=== PATIENT | female | born 1965 | race Caucasian/White ===

== ENCOUNTER → 2020-12-06 | Outpatient (CLI) | payer BC ==
[~2020-12-06] MED LIST: ATOR10TA60 PO; CETI10TA74 PO; FAMO20TA5 PO; FLUT9.9S NS; LEVO88TA4 PO; METO50TA6 PO; ONDA4TAB7 PO; TOPI50TA8 PO
== END ==
LOC: LAB 09:26
PROVIDERS: ATTEND Orthopaedic Surgery
DX: Z01.812 Encounter for preprocedural laboratory examination (principal); Z20.822 Contact with and (suspected) exposure to COVID-19
CPT/HCPCS: U0003; U0005

== ENCOUNTER 2020-12-08 06:47 | Day surgery (SDC) | payer BC ==
[~2020-12-08] VITALS: Ht 170.2 cm; Wt 97.8 kg
[~2020-12-08 06:47] MED LIST changes: +IV RINGERS,LACTATED 1000ML 1,000 ML IV SCH; -ONDA4TAB7 PO; +PROCHLORPERAZINE 10 MG/2 ML VIAL. IVP PRN
[2020-12-08] MEDS ORDERED: PROPOFOL 10 MG/ML (20ML) VIAL. IV ONE ×2 (07:36→07:38)
[2020-12-08] MEDS ORDERED: ROCURONIUM 50 MG/5 ML VIAL. ONE (07:36)
[2020-12-08] MEDS ORDERED: LIDOCAINE 2% PF 5 ML VIAL. ONE ×2 (07:37→07:38)
[2020-12-08] MEDS ORDERED: KETOROLAC 30 MG/ML VIAL. ONE (07:38)
[2020-12-08] MEDS ORDERED: SEVOFLURANE > 120 MINUTES. IH ONE (07:38)
[2020-12-08] MEDS ORDERED: DEXAMETHASONE SOD PHOS 4 MG/ML VIAL ONE (07:38)
[2020-12-08] MEDS ORDERED: ONDANSETRON PF 4 MG/2 ML VIAL. ONE ×2 (07:38→11:54)
[2020-12-08] MEDS ORDERED: SCOPOLAMINE 1.5MG PATCH. TD ONE (07:45)
[2020-12-08] MEDS ORDERED: MIDAZOLAM HCL/PF 2 MG/2 ML VIAL. ONE (07:52)
[2020-12-08] MEDS ORDERED: ROPIVacaine 0.5% PF 20 ML VIAL. ONE (07:53)
[2020-12-08] MEDS ORDERED: ACETAMINOPHEN 500 MG TABLET PO ONE ×2 (08:09→08:15)
[2020-12-08] MEDS ORDERED: EPINEPHrine VIAL 30 MG/30 ML VIAL ONE (08:13)
[2020-12-08] MEDS ORDERED: KETAMINE HCL IN NACL, ISO-OSM 50 MG/5 ML SYRINGE ONE (08:58)
[2020-12-08] MEDS ORDERED: BUPIVACAINE-EPI 0.5% 30 ML VIAL KIT. ONE (09:00)
[2020-12-08] MEDS ORDERED: GLYCOPYRROLATE 1 MG/5 ML VIAL. ONE (09:04)
[2020-12-08] MEDS ORDERED: NEOSTIGMINE METHYLSULFATE 5 MG/5 ML SYRINGE. ONE (09:04)
[2020-12-08] MEDS ORDERED: ePHEDrine PF IN SALINE 50 MG/10 ML SYRINGE. IV ONE (09:09)
[2020-12-08] MEDS ORDERED: fentaNYL PF VIAL 100 MCG/2 ML VIAL ONE (10:44)
[2020-12-08] MEDS: fentaNYL PF VIAL 100 MCG/2 ML VIAL IVP PRN ×2 (10:53→11:04)
[2020-12-08] MEDS ORDERED: PROCHLORPERAZINE 10 MG/2 ML VIAL. IVP PRN (11:00)
[2020-12-08] MEDS ORDERED: IV RINGERS,LACTATED 1000ML 1,000 ML IV SCH (11:00)
[2020-12-08] MEDS ORDERED: fentaNYL PF VIAL 100 MCG/2 ML VIAL IVP PRN (11:00)
[2020-12-08] MEDS ORDERED: MORPHINE SULFATE 2 MG/ML INJ. IVP PRN (11:00)
[2020-12-08] MEDS ORDERED: ONDA4TAB7 PO (11:11)
--- NOTE | 2020-12-08 11:13 | DISCH ---
DISCHARGE INSTRUCTIONS Condition on Discharge Condition on Discharge: Stable Activity After Discharge Activity Instructions for Disc: Other, see below (No lifting elbow away from the shoulder may hang arm down and a pendulum exercise or swing at the side also may eat right and type with elbow at the side) Weight Bearing Status after Di: Non weight bearing Diet after Discharge Diet after Discharge: Regular Wound Incision Care Wound/Incision Care: Ice to area for comfort, Change dressing (Remove dressing in 2 days may then shower no soaking) Community/Resources/Services Services at Discharge: PT EVALUATE & TREAT (Passive and active assisted range of motion only for the first 4 weeks postop) Contacting the after DC Call your doctor for: Concerns you may have Follow-Up Follow up with: Dr. Ziegler or Jona 10 days SONIA ZIEGLER MD Dec 08, 2020 11:13
[2020-12-08] MEDS ORDERED: HYDROmorphone 2 MG/ML VIAL ONE (11:14)
[2020-12-08] MEDS: HYDROmorphone 2 MG/ML VIAL IVP PRN ×2 (11:18→12:00)
[2020-12-08 11:31] VITALS: BP 132/76
[2020-12-08] MEDS ORDERED: ONDANSETRON PF 4 MG/2 ML VIAL. IVP ONE (12:30)
--- NOTE | 2020-12-08 18:51 | PDOC4 ---
Operative Note Operative Note Date of surgery: 12/08/2020 Preoperative diagnosis: Left shoulder rotator cuff tear Postoperative diagnosis: Same with biceps anchor compromise Operative procedure: Left shoulder arthroscopy, rotator cuff repair and biceps tenodesis Surgeon: Karlie Certified Coding Specialist: Lane june assist Anesthesia: General plus scalene block Estimated blood loss: 10 cc Complications: None Operative indications: Please see my orthopedic clinic note for detailed operative indications and note that we had covered the rationale for operative treatment of the rotator cuff injury and any other pathology as well as risk benefits postoperative course of infection nonhealing nerve or blood vessel damage continued pain medical or other anesthetic complications among others and the long recovery process and rationale for restrictions postoperatively. All her questions were answered she agrees to proceed with surgical evaluation and treatment Operative text: Patient was identified procedure verified patient placed in the supine position on the operating table. After adequate amounts of general anesthesia were administered along with a pre-existing scalene block the patient was placed decubitus left side up all bony prominences were well-padded and the left shoulder was examined under anesthesia found to have full range of motion no instability and was prepped and draped in standard sterile fashion placed in the arthroscopic arm guo with a total of 10 pounds of traction. After timeout was performed patient procedure identified and verified a standard posterior portal was established an anterior portal established using spinal needle localization and the shoulder joint was systematically examined. She was noted to have severe compromise of the biceps anchor and biceps was tagged and tenotomized superior labrum debrided back to stable tissue. Although there was some irregularity anteriorly on the rotator cuff insertion I did not notice a full-thickness tear visible from the joint space. Bare area of the humerus was normal in appearance as were the capsuloligamentous structures and she had good preservation of glenohumeral cartilage. Subacromial space was then entered bursa was cleared to allow visualization and she had 2 observable defects of the supraspinatus insertion. A larger defect was noted with a near full-thickness tear anterior portion of the footprint and a thinner longitudinally oriented tear at the most lateral aspect of the supraspinatus insertion. The smaller lateral tear was addressed arthroscopically with a single loaded juggernaut anchor and sutures were placed in simple fashion and tied to secure the limbs of the tear with sliding locking knot backed up by alternating post half hitches. The anterior leaf of the tear was addressed with a double loaded juggernaut anchor with sutures placed in simple fashion and again tied using sliding locking knots backed up by alternating post half hitches. Biceps was tenodesed after anatomic tensioning in the bicipital groove with a [employer] bolt peek fixation device with excellent fixation noted. The shoulder was then drained of arthroscopic fluid the slightly enlarged anterior portal was closed with buried Vicryl suture and nylon suture remaining portals closed with nylon suture sterile dressings were applied patient was placed in an immobilizer and returned to recovery room in stable condition having tolerated procedure well. Lane june assist was present for the procedure assisted in patient pos itioning prepping draping retraction closure and dressings SONIA PATEL MD Dec 08, 2020 18:51
== END 2020-12-08 12:17 | disposition home or self-care (01) ==
LOC: SURG 06:47
PROVIDERS: ATTEND Orthopaedic Surgery
DX: M75.102 Unspecified rotator cuff tear or rupture of left shoulder, not specified as traumatic (principal); E78.00 Pure hypercholesterolemia, unspecified; E11.9 Type 2 diabetes mellitus without complications; E66.9 Obesity, unspecified; M19.90 Unspecified osteoarthritis, unspecified site; F41.9 Anxiety disorder, unspecified; F32.9 Major depressive disorder, single episode, unspecified; Z79.899 Other long term (current) drug therapy; Z98.890 Other specified postprocedural states; Z88.8 Allergy status to other drugs, medicaments and biological substances
CPT/HCPCS: 29827; 64415; A4364; A4565; A4930; C1713; J0171; J0690; J1100; J1170; J1885; J2250; J2405; J2704; J2710; J2795; J3010; J3490